=== PATIENT | female | born 1995 | race Caucasian/White ===

== ENCOUNTER 2021-08-03 21:51 | Emergency (ER) | payer OTHER ==
[~2021-08-03] VITALS: Ht 162.6 cm; Wt 68.0 kg
[2021-08-03] MEDS ORDERED: ACETAMINOPHEN 500 MG TAB PO ONE (23:30)
[2021-08-03] MEDS ORDERED: ONDANSETRON ODT 4 MG TAB PO ONE (23:30)
[2021-08-03 23:33] VITALS: BP 110/56
[2021-08-04] MEDS ORDERED: MAGNESIUM SULFATE 1GM/100ML 100 ML IV ONE (00:30)
[2021-08-04] MEDS ORDERED: ONDA-144 PO ×2 (02:10→02:25)
[2021-08-04] MEDS ORDERED: ACET-1079 PO ×2 (02:13→02:25)
== END 2021-08-04 02:29 | disposition home or self-care (01) ==
LOC: ER 21:51
DX: O29.41 Spinal and epidural anesthesia induced headache during pregnancy, first trimester (principal); R51.9 Headache, unspecified; Z3A.14 14 weeks gestation of pregnancy
CPT/HCPCS: 96365; 99284; J3475; Q0162